=== PATIENT | male | born 1975 | race Caucasian/White ===

== ENCOUNTER → 2017-12-06 17:03 | Outpatient (CLI) | payer MEDICAID ==
[2016-04-12 07:03] VITALS: BMI 29.0
[~2017-12-06 17:03] MED LIST: OMEPRAZOLE40 MG PO; PERCOCET 10/3251 TA1 PO; ZOFRAN ODT4 MG/UDTAB PO
== END | disposition home or self-care (01) ==
LOC: D.MRI 11-28 17:30
DX: M22.41 Chondromalacia patellae, right knee (principal)

== ENCOUNTER 2018-01-14 08:33 | Emergency (ER) | payer MEDICAID ==
[~2018-01-14] VITALS: Ht 185.4 cm; Wt 88.6 kg
[~2018-01-14 08:33] MED LIST changes: -ZOFRAN ODT4 MG/UDTAB PO
[2018-01-14 08:55] VITALS: Ht 185.4 cm; Wt 88.6 kg
[2018-01-14] MEDS ORDERED: ZOFRAN ODT4 MG/UDTAB PO (09:17)
[2018-01-14 10:58] VITALS: BP 117/79
== END 2018-01-14 10:59 | disposition home or self-care (01) ==
LOC: D.ER 08:33
DX: R04.0 Epistaxis (principal); R11.2 Nausea with vomiting, unspecified; F17.200 Nicotine dependence, unspecified, uncomplicated